=== PATIENT | female | born 1990 | race Caucasian/White ===

== ENCOUNTER → 2023-11-20 13:06 | Outpatient (REF) | payer BC, SELFPAY ==
[2023-11-29 09:24] LABS: HPV, High Risk Not Detected; HPV, High Risk Source Cervical
== END ==
LOC: CPAP 13:06
PROVIDERS: ATTENDING PHYSICIAN Nurse Practitioner Family
DX: Z12.4 Encounter for screening for malignant neoplasm of cervix (principal); Z01.419 Encounter for gynecological examination (general) (routine) without abnormal findings; Z11.51 Encounter for screening for human papillomavirus (HPV); Z11.3 Encounter for screening for infections with a predominantly sexual mode of transmission; Z34.91 Encounter for supervision of normal pregnancy, unspecified, first trimester
CPT/HCPCS: 87491; 87591; 87624

== ENCOUNTER → 2023-11-21 10:19 | Outpatient (REF) | payer BC, SELFPAY ==
[2023-11-21 12:33] LABS: Urine Albumin Negative (Neg - Trace); Urine Bilirubin Negative (Negative); Urine Character Clear (Clear); Urine Color Yellow; Urine Glucose Negative (Negative); Urine Ketone Negative (Negative); Urine Leukocyte 1+ (Negative); Urine Nitrite Negative (Negative); Urine Occult Blood Negative (Negative); Urine Specific Gravity 1.015 (<1.030); Urine Urobilinogen Negative (Neg - 1+); Urine pH 6.5 (5.0-9.0)
[2023-11-21 12:38] LABS: % Basophils 0.7 % (0-2); % Eosinophils 0.9 % (0-6); % Immature Granulocytes 0.5 % (0-0.5); % Lymphocytes 25.3 % (20.5-51.1); % Neutrophils 64.6 % (42.2-75.2); Absolute Basophils 0.1 10^3/uL (0-0.2); Absolute Eosinophils 0.1 10^3/uL (0-0.7); Absolute Lymphocytes 2.2 10^3/uL (1.2-3.4); Absolute Monocytes 0.7 10^3/uL (0.1-0.6); Absolute Neutrophils 5.5 10^3/uL (1.4-6.5); Hematocrit 36.2 % (37.0-47.0); Hemoglobin 12.6 g/dL (12.0-16.0); Mean Corp Hgb Conc. 34.8 g/dL (33.0-37.0); Mean Corpuscular Hgb 30.8 pg (27.0-31.0); Mean Corpuscular Volume 88.5 fL (81.0-99.0); Mean Platelet Volume 9.7 fL (7.4-10.4); Nucleated Red Blood Cells % 0 %; Platelet Count 244 10^3/uL (130-400); Red Blood Cell Count 4.09 10^6/uL (4.20-5.40); Red Cell Dist. Width 12.1 % (11.5-14.5); White Blood Cell Count 8.6 10^3/uL (4.8-10.8)
[2023-11-21 13:11] LABS: Urine Red Blood Cell 0-2 /HPF (0-2)
[2023-11-23 19:14] LABS: Hepatitis B Surface Antigen Negative (Negative)
[2023-11-23 19:34] LABS: Rubella Positive
[2023-11-23 19:52] LABS: Hepatitis C Antibody Negative (Negative)
== END ==
LOC: REG 10:19
PROVIDERS: ATTENDING PHYSICIAN Nurse Practitioner Family
DX: Z32.01 Encounter for pregnancy test, result positive (principal)
CPT/HCPCS: 36415; 80055; 81003; 81015; 83036; 86803; 86850; 86900; 86901; 87086

== ENCOUNTER → 2024-04-16 09:11 | Outpatient (REF) | payer BC, SELFPAY ==
[2024-04-16 11:47] LABS: % Basophils 0.5 % (0-2); % Eosinophils 0.9 % (0-6); % Immature Granulocytes 1.6 % (0-0.5); % Lymphocytes 15.7 % (20.5-51.1); % Monocytes 4.7 % (1.7-9.3); % Neutrophils 76.6 % (42.2-75.2); Absolute Basophils 0.1 10^3/uL (0-0.2); Absolute Eosinophils 0.1 10^3/uL (0-0.7); Absolute Immature Granulocytes 0.2 10^3/uL (0-0.05); Absolute Lymphocytes 1.8 10^3/uL (1.2-3.4); Absolute Monocytes 0.6 10^3/uL (0.1-0.6); Hematocrit 34.5 % (37.0-47.0); Hemoglobin 11.6 g/dL (12.0-16.0); Mean Corp Hgb Conc. 33.6 g/dL (33.0-37.0); Mean Corpuscular Hgb 31.7 pg (27.0-31.0); Mean Corpuscular Volume 94.3 fL (81.0-99.0); Mean Platelet Volume 9.6 fL (7.4-10.4); Nucleated Red Blood Cells % 0 %; Platelet Count 203 10^3/uL (130-400); Red Blood Cell Count 3.66 10^6/uL (4.20-5.40); Red Cell Dist. Width 12.4 % (11.5-14.5); White Blood Cell Count 11.7 10^3/uL (4.8-10.8)
[2024-04-16 12:02] LABS: 1 Hour after 50gm 108 mg/dl
== END ==
LOC: REG 09:11
PROVIDERS: ATTENDING PHYSICIAN Obstetrics & Gynecology
DX: Z34.93 Encounter for supervision of normal pregnancy, unspecified, third trimester (principal)
CPT/HCPCS: 36415; 82950; 85025; 86780

== ENCOUNTER → 2024-06-15 12:59 | Outpatient (REF) | payer BC, SELFPAY | LOC: CLAB 12:59 | PROVIDERS: ATTENDING PHYSICIAN Obstetrics & Gynecology | DX: Z34.90 Encounter for supervision of normal pregnancy, unspecified, unspecified trimester (principal); Z36.85 Encounter for antenatal screening for Streptococcus B | CPT/HCPCS: 87070 ==

== ENCOUNTER 2024-07-07 22:50 | Inpatient (IN) | payer BC, SELFPAY ==
[2024-07-07 23:32] VITALS: BP 137/86; BMI 29.0
[2024-07-08] MEDS: LR 1000 IV
[2024-07-08 00:15] LABS: % Basophils 0.4 % (0-2); % Eosinophils 0.6 % (0-6); % Lymphocytes 22.1 % (20.5-51.1); % Monocytes 6.5 % (1.7-9.3); % Neutrophils 69.4 % (42.2-75.2); Absolute Basophils 0.1 10^3/uL (0-0.2); Absolute Eosinophils 0.1 10^3/uL (0-0.7); Absolute Immature Granulocytes 0.1 10^3/uL (0-0.05); Absolute Lymphocytes 2.7 10^3/uL (1.2-3.4); Absolute Monocytes 0.8 10^3/uL (0.1-0.6); Absolute Neutrophils 8.4 10^3/uL (1.4-6.5); Hemoglobin 12.2 g/dL (12.0-16.0); Mean Corp Hgb Conc. 33.9 g/dL (33.0-37.0); Mean Corpuscular Hgb 31.6 pg (27.0-31.0); Mean Corpuscular Volume 93.3 fL (81.0-99.0); Mean Platelet Volume 9.8 fL (7.4-10.4); Nucleated Red Blood Cells % 0 %; Platelet Count 172 10^3/uL (130-400); Red Blood Cell Count 3.86 10^6/uL (4.20-5.40); Red Cell Dist. Width 12.8 % (11.5-14.5); White Blood Cell Count 12.1 10^3/uL (4.8-10.8)
[2024-07-08] MEDS: FENTANYL/BUPIVACAINE 100 EPIDURAL (00:53)
[2024-07-08] MEDS: SUBLIMAZE 100 MCG EPIDURAL (00:53)
[2024-07-08] MEDS: PITOCIN 30 UNITS/NSS 500 ML IV (04:28)
[2024-07-08] MEDS: METHERGINE INJECTION 0.2 MG IM (05:32)
[2024-07-08] MEDS: PRENATAL PLUS 1 TABLET PO (07:47)
[2024-07-08] MEDS: SENOKOT-S 1 TABLET PO (07:47)
[2024-07-08 15:21] LABS: HIV Combo Negative (Negative)
[2024-07-09 04:10] LABS: Hematocrit 33.5 % (37.0-47.0); Hemoglobin 11.3 g/dL (12.0-16.0)
[2024-07-09] MEDS: PRENATAL PLUS 1 TABLET PO (07:54)
[2024-07-09] MEDS: SENOKOT-S 1 TABLET PO (07:57)
[2024-07-11 13:23] LABS: Syphilis/T. pallidum Ab Reflex Negative (Negative)
== END 2024-07-09 12:00 | disposition home or self-care (01) | DRG 807 ==
LOC: LDRP 22:50
PROVIDERS: ADMITTING PHYSICIAN Obstetrics & Gynecology; FAMILY PHYSICIAN Obstetrics & Gynecology
PROC: 10907ZC Drainage of Amniotic Fluid, Therapeutic from Products of Conception, Via Natural or Artificial Opening (ICD-10-PCS; 2024-07-08)
PROC: 10E0XZZ Delivery of Products of Conception, External Approach (ICD-10-PCS; 2024-07-08)
DX: O69.81X0 Labor and delivery complicated by cord around neck, without compression, not applicable or unspecified (principal); Z37.0 Single live birth; Z3A.39 39 weeks gestation of pregnancy
CPT/HCPCS: 36415; 85014; 85018; 85025; 86780; 86850; 86900; 86901; 87389

== ENCOUNTER → 2025-02-07 09:49 | Outpatient (REF) | payer BC, SELFPAY ==
[2025-02-07 11:53] LABS: TSH 0.92 uIU/ml (0.47-4.68)
== END ==
LOC: REG 09:49
PROVIDERS: ATTENDING PHYSICIAN Obstetrics & Gynecology; FAMILY PHYSICIAN Physician Assistant Medical
DX: Z01.419 Encounter for gynecological examination (general) (routine) without abnormal findings (principal)
CPT/HCPCS: 36415; 84443